=== PATIENT | male | born 2000 | race Caucasian/White ===

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

== ENCOUNTER 2019-08-28 21:44 | Emergency (ER) | payer OTHER ==
[~2019-08-28] VITALS: Ht 165.1 cm; Wt 80.9 kg
[2019-08-28 21:51] VITALS: BP 144/83
== END 2019-08-29 00:01 | disposition left against medical advice (07) ==
LOC: ED 21:44
DX: M79.675 Pain in left toe(s) (principal)